=== PATIENT | female | born 1975 | race Caucasian/White ===

== ENCOUNTER → 2016-06-06 | Outpatient (CLI) | payer OTHER ==
[~2016-06-06] MED LIST: ANAPROX DS550 MG PO; ANTIVERT/2525 MG PO; CIPRO250 MG PO; CIPRO500 MG PO; CIPRODEX 0.3%-7.5 ML OT; FLAGYL500 MG PO; HYDROCODONE BIT1 T11 PO; K-Dur 20MEQ20 MEQ PO; LISINOPRIL20 MG PO; Lopressor25 MG PO; MEDROL DOSEPAK4 MG PO; METOPROLOL100 MG PO; NICOTINE14 MG/24 H TD; PROVERA10 MG PO; PROVERA5 MG PO; VICODIN ES 7501 TAB PO; VISTARIL25 MG PO
[2016-06-06 16:46] LABS: BASO % 0.6 % (0.0-1.0); EOS % 0.6 % (1.0-4.0); HEMATOCRIT 38.2 % (37.0-47.0); HEMOGLOBIN 12.3 g/dl (12.0-16.0); LYMPH # 2.9 10*3/uL (1.3-4.4); LYMPH % 39.6 % (27.0-41.0); MEAN CELL VOLUME 87.2 fl (81.0-99.0); MEAN CORPUSCULAR HGB 28.1 pg (27.0-31.0); MEAN CORPUSCULAR HGB CONC 32.2 g/dl (33.0-37.0); MONO # 0.5 10*3/uL (0.1-1.0); MONO % 7.3 % (3.0-9.0); NEUT # 3.8 10*3/uL (2.3-7.9); NEUT % 51.6 % (47.0-73.0); PLATELET COUNT AUTOMATED 207 10*3/uL (130-400); RED BLOOD COUNT 4.38 10*6/uL (4.10-5.10); RED CELL DISTRI WIDTH 13.3 % (0-14.5); WHITE BLOOD COUNT 7.3 10*3/uL (4.8-10.8)
[2016-06-06 16:50] LABS: BILIRUBIN NEGATIVE (NEGATIVE); BLOOD NEGATIVE (NEGATIVE); CLARITY SL CLOUDY (CLEAR); COLOR YELLOW (YELLOW); GLUCOSE NEGATIVE (NEGATIVE); KETONE NEGATIVE (NEGATIVE); LEUKO ESTERASE 2+ (NEGATIVE); NITRITE NEGATIVE (NEGATIVE); PH 7.5 (5.0-9.0); PROTEIN NEGATIVE (NEGATIVE); UROBILINOGEN 0.2 E.U./dl (0.2-1.0)
[2016-06-06 17:14] LABS: ALBUMIN 3.5 gm/dl (3.1-4.5); ALKALINE PHOSPHATASE 60 U/L (45-117); BILIRUBIN, TOTAL 0.5 mg/dl (0.2-1.0); BUN 7 mg/dl (7-24); CARBON DIOXIDE 29 mmol/L (21-32); CHLORIDE 106 mmol/L (98-107); EPITHELIAL CELLS 15-20; EST GLOM FILT AFRICAN AMERICAN > 60 ml/min; GLUCOSE 87 mg/dL (65-99); MUCOUS 1+; POTASSIUM 4.1 mmol/L (3.5-5.1); RBC 0-2 rbc/hpf (0-2); SGOT/AST 16 IU/L (3-35); SGPT/ALT 21 U/L (12-78); SODIUM 144 mmol/L (136-145); TOTAL PROTEIN 7.7 gm/dL (6.4-8.2)
== END | disposition home or self-care (01) ==
LOC: LAB 15:20
DX: Z01.812 Encounter for preprocedural laboratory examination (principal)

== ENCOUNTER 2017-04-10 20:13 | Emergency (ER) | payer OTHER ==
[~2017-04-10] VITALS: Ht 172.7 cm; Wt 90.7 kg
[2017-04-10 20:18] VITALS: BP 163/96
[2017-04-10 20:51] LABS: BASO % 0.3 % (0.0-1.0); EOS # 0.1 10*3/uL (0.0-0.4); EOS % 1.3 % (1.0-4.0); HEMATOCRIT 34.2 % (37.0-47.0); HEMOGLOBIN 11.4 g/dl (12.0-16.0); LYMPH # 3.1 10*3/uL (1.3-4.4); LYMPH % 51.1 % (27.0-41.0); MEAN CELL VOLUME 81.6 fl (81.0-99.0); MEAN CORPUSCULAR HGB 27.2 pg (27.0-31.0); MEAN CORPUSCULAR HGB CONC 33.3 g/dl (33.0-37.0); MEAN PLATELET VOLUME 10.2 fl (9.6-12.3); MONO # 0.4 10*3/uL (0.1-1.0); MONO % 6.4 % (3.0-9.0); NEUT # 2.5 10*3/uL (2.3-7.9); NEUT % 40.7 % (47.0-73.0); PLATELET COUNT AUTOMATED 191 10*3/uL (130-400); RED BLOOD COUNT 4.19 10*6/uL (4.10-5.10); RED CELL DISTRI WIDTH 13.6 % (0-14.5); WHITE BLOOD COUNT 6.1 10*3/uL (4.8-10.8)
[2017-04-10 21:06] LABS: ALBUMIN 3.4 gm/dl (3.1-4.5); ALKALINE PHOSPHATASE 54 U/L (45-117); BUN 9 mg/dl (7-24); CHLORIDE 103 mmol/L (98-107); CREATININE 0.73 mg/dL (0.55-1.02); LIPASE 154 U/L (73-393); POTASSIUM 3.2 mmol/L (3.5-5.1); SGOT/AST 22 IU/L (3-35); SGPT/ALT 23 U/L (12-78); SODIUM 140 mmol/L (136-145); TOTAL PROTEIN 7.2 gm/dL (6.4-8.2)
[2017-04-10] MEDS ORDERED: NAPROSYN500 MG PO (21:13)
[2017-04-10] MEDS ORDERED: CYCLOBENZAPRINE10 MG PO (21:13)
== END 2017-04-10 21:15 | disposition home or self-care (01) ==
LOC: ED 20:13
PROVIDERS: Nurse Practitioner Family
DX: S39.011A Strain of muscle, fascia and tendon of abdomen, initial encounter (principal); X50.3XXA Overexertion from repetitive movements, initial encounter; Y93.89 Activity, other specified; Y99.8 Other external cause status; Y92.89 Other specified places as the place of occurrence of the external cause

== ENCOUNTER 2019-05-07 13:52 | Inpatient (IN) | payer SELFPAY ==
[~2019-05-07] VITALS: Ht 165.1 cm; Wt 83.5 kg
[~2019-05-07 13:52] MED LIST changes: +CYCLOBENZAPRINE10 MG PO; +IBU800 MG PO; +NAPROSYN500 MG PO; +PREDNISONE50 MG PO
[2019-05-07 13:53] VITALS: BP 143/78
[2019-05-07] MEDS ORDERED: LISINOPRIL20 MG PO (14:14)
[2019-05-07 14:38] LABS: BASO % 0.2 % (0.0-1.0); EOS % 0.2 % (1.0-4.0); HEMATOCRIT 32.9 % (37.0-47.0); LYMPH # 1.2 10*3/uL (1.3-4.4); LYMPH % 11.8 % (27.0-41.0); MEAN CELL VOLUME 81.8 fl (81.0-99.0); MEAN CORPUSCULAR HGB 24.9 pg (27.0-31.0); MEAN CORPUSCULAR HGB CONC 30.4 g/dl (33.0-37.0); MEAN PLATELET VOLUME 11.5 fl (9.6-12.3); MONO # 0.7 10*3/uL (0.1-1.0); MONO % 6.6 % (3.0-9.0); NEUT # 8.2 10*3/uL (2.3-7.9); NEUT % 80.8 % (47.0-73.0); PLATELET COUNT AUTOMATED 167 10*3/uL (130-400); RED BLOOD COUNT 4.02 10*6/uL (4.10-5.10); RED CELL DISTRI WIDTH 14.6 % (0-14.5); WHITE BLOOD COUNT 10.2 10*3/uL (4.8-10.8)
[2019-05-07 14:52] LABS: BILIRUBIN NEGATIVE (NEGATIVE); BLOOD NEGATIVE (NEGATIVE); CLARITY SL CLOUDY (CLEAR); COLOR YELLOW (YELLOW); GLUCOSE NEGATIVE (NEGATIVE); KETONE NEGATIVE (NEGATIVE); LEUKO ESTERASE TRACE (NEGATIVE); NITRITE NEGATIVE (NEGATIVE); SPECIFIC GRAVITY 1.025 (1.005-1.030)
[2019-05-07 14:55] LABS: ALBUMIN 2.9 gm/dl (3.1-4.5); ALKALINE PHOSPHATASE 42 U/L (45-117); BUN 8 mg/dl (7-24); CHLORIDE 109 mmol/L (98-107); CREATININE 0.63 mg/dL (0.55-1.02); LIPASE 116 U/L (73-393); POTASSIUM 3.4 mmol/L (3.5-5.1); SGOT/AST 17 IU/L (3-35); SGPT/ALT 13 U/L (12-78); SODIUM 140 mmol/L (136-145); TOTAL PROTEIN 7.3 gm/dL (6.4-8.2)
[2019-05-07 15:13] LABS: BACTERIA TRACE; EPITHELIAL CELLS 16-20; MUCOUS 1+
--- NOTE | 2019-05-07 16:16 | NUR ---
THE PATIENT WAS TAKEN TO CT VIA WC
[2019-05-07 17:14] VITALS: BP 164/105
[2019-05-07 17:30] VITALS: BP 167/100
--- NOTE | 2019-05-07 17:41 | NUR ---
CCA 43, admitted to , under the services of BRIDGETT Vanegas DO with a diagnosis of DIVERTICULITIS. Chief complaint is ABD PAIN. Patient arrived via bed from ER. Monitor applied. Initial assessment completed. Vital signs taken and recorded. BRIDGETT VANEGAS DO notified of admission to the unit. Orders received. See assessment for past medical history, medications and allergies. Patient and/or family oriented to unit. [facility] visitation policy reviewed. Clothing/patient valuable form completed. FLETCHER BRUNO
--- NOTE | 2019-05-07 18:23 | NUR ---
PHYSICIAN WAS NOTIFIED OF DR. PERAZA CONSULT. RESPONSE OF NOTIFICATION WAS OK THEY CALLED ME FROM ER AND I WILL SEE HER TOMORROW. CLEAR LIQUID DIET.. KHRIS HERRERA
[2019-05-07 20:00] VITALS: BP 155/88
--- NOTE | 2019-05-07 21:15 | NUR ---
PATIENT IS RESTING IN BED WITH EASY AND REGULAR RESPERS ON ROOM AIR. ASSESSMENT IS COMPLETE WITH NO S/S OF DISTRESS NOTED AT THIS TIME. PATIENT C/O BODY ACHES AND TEMPERATURE RECHECKED WITH A RESULT OF 102 TYMPANIC. PRN TYLENOL GIVEN AT THIS TIME. BED IS LOW, LOCKED, AND CALL LIGHT IS WITHIN REACH.
--- NOTE | 2019-05-07 22:16 | NUR ---
TEMP GOING DOWN NOW 101.1 AFTER TYLENOL WILL CONTINUE TO MONITOR.
--- NOTE | 2019-05-07 22:35 | NUR ---
24 HR chart check completed.
--- NOTE | 2019-05-07 22:45 | NUR ---
PT ARRIVED TO THE 5TH FLOOR AT THIS TIME. RECEIVED REPORT FROM NURSE BRUNO. PT RELAXING IN BED. RESPIRATIONS EASY, NONLABORED. PT HAS NO COMPLAINTS AT THIS TIME. CALL LIGHT WITHIN REACH.
[2019-05-08] VITALS: BP 148/80
--- NOTE | 2019-05-08 02:05 | NUR ---
24 HR chart check completed.
--- NOTE | 2019-05-08 04:06 | NUR ---
PT CO LEG PAIN RATED A 6/10. MEDICATED WITH PRN NORCO ORDERED. WILL CHECK EFFECTIVENESS. CALL LIGHT WITHIN REACH.
--- NOTE | 2019-05-08 04:37 | NUR ---
PATIENT SLEEPING IN BED. RESPIRATIONS EASY, NONLABORED. NO SIGNS OF DISTRESS NOTED. CALL LIGHT WITHIN REACH. WILL CONTINUE TO MONITOR.
--- NOTE | 2019-05-08 04:41 | NUR ---
PATIENT SLEEPING. RESPIRATIONS EASY, NONLABORED. PAIN MEDICATIONS SEEMS TO BE EFFECTIVE. WILL MONITOR.
[2019-05-08 06:34] LABS: BASO % 0.2 % (0.0-1.0); EOS % 0.1 % (1.0-4.0); HEMATOCRIT 28.2 % (37.0-47.0); HEMOGLOBIN 8.6 g/dl (12.0-16.0); LYMPH % 12.2 % (27.0-41.0); MEAN CELL VOLUME 80.6 fl (81.0-99.0); MEAN CORPUSCULAR HGB 24.6 pg (27.0-31.0); MEAN CORPUSCULAR HGB CONC 30.5 g/dl (33.0-37.0); MEAN PLATELET VOLUME 11.3 fl (9.6-12.3); MONO # 0.8 10*3/uL (0.1-1.0); MONO % 8.9 % (3.0-9.0); NEUT # 6.7 10*3/uL (2.3-7.9); NEUT % 78.1 % (47.0-73.0); PLATELET COUNT AUTOMATED 142 10*3/uL (130-400); RED CELL DISTRI WIDTH 14.7 % (0-14.5); WHITE BLOOD COUNT 8.5 10*3/uL (4.8-10.8)
[2019-05-08 06:39] LABS: ALBUMIN 2.5 gm/dl (3.1-4.5); BUN 7 mg/dl (7-24); CHLORIDE 109 mmol/L (98-107); POTASSIUM 3.1 mmol/L (3.5-5.1); SODIUM 139 mmol/L (136-145)
[2019-05-08 06:51] LABS: ALKALINE PHOSPHATASE 37 U/L (45-117); CHOLESTEROL 114 mg/dL (<200); CREATININE 0.53 mg/dL (0.55-1.02); HDL CHOLESTEROL 37 mg/dl (40-60); LDL CHOLESTEROL 62 mg/dL (9-159); PHOSPHOROUS 3.2 mg/dL (2.5-4.9); SGOT/AST 10 IU/L (3-35); SGPT/ALT 13 U/L (12-78); THYROID STIM HORMONE (HS) 0.818 uIU/ml (0.358-4.75); TOTAL PROTEIN 6.2 gm/dL (6.4-8.2); TRIGLYCERIDES 77 mg/dl (<150); VLDL CHOLESTEROL 15 mg/dL (6-40)
[2019-05-08 07:47] LABS: ACT PARTIAL THROMBO TIME 28.5 SECONDS (20.0-32.1)
[2019-05-08 08:00] VITALS: BP 134/81
[2019-05-08 08:00] LABS: VITAMIN D, 25-HYDROXY 27.8 ng/mL (30-100)
--- NOTE | 2019-05-08 08:55 | NUR ---
MEDICATED WITH PRN PO NORCO FOR LOWER ABDOMINAL PAIN.
--- NOTE | 2019-05-08 09:01 | NUR ---
DR. PERAZA IN TO SEE PATIENT RE: PLAN OF CARE, WILL BE ENTERING ORDER FOR LOW RESIDUE DIET, PLAN IS TO CONTINUE ANTIBIOTICS FOR NOW AND MONITOR RESPONSE TO TREATMENT.
--- NOTE | 2019-05-08 09:36 | NUR ---
PRN PO NORCO EFFECTIVE, PER PATIENT.
[2019-05-08 12:00] VITALS: BP 142/86
--- NOTE | 2019-05-08 15:50 | NUR ---
MEDICATED WITH PRN PO NORCO FOR ABDOMINAL AND BACK PAIN.
[2019-05-08 16:00] VITALS: BP 143/69
--- NOTE | 2019-05-08 16:31 | NUR ---
PRN PO NORCO EFFECTIVE, PER PATIENT.
[2019-05-08 20:00] VITALS: BP 139/77
--- NOTE | 2019-05-08 23:18 | NUR ---
PT COMPLIANING OF LOWER ABD PAIN 02/08 NORCO GIVEN
[2019-05-09] VITALS: BP 131/67
--- NOTE | 2019-05-09 00:19 | NUR ---
PT RESTING COMFORTABLY NO COMPLAINTS OF LOWER ABD PAIN
--- NOTE | 2019-05-09 02:57 | NUR ---
24 HOUR CHART CHECK COMPLETED
--- NOTE | 2019-05-09 05:58 | NUR ---
PT COMPLAINS LOWER ABD PAIN 9/10 NORCO GIVEN
--- NOTE | 2019-05-09 07:33 | NUR ---
VITALS STABLE. SKIN WARM, DRY, PINK, INTACT. CAPILLARY REFILL <3 SEC. + PERIPHERAL PULSES. LEE. PO2 96% RA. HEART SOUNDS NORMAL, 82BPM STRONG, IRREGULAR. LUNG SOUNDS DIMINISHED BUT CLEAR THROUGHOUT. BOWEL SOUNDS X4, ABDOMEN SOFT, NON-DISTENDED, TENDER IN LLQ. LEFT ANTECUBITAL IV SITE INTACT, NO S/S OF INFECTION. NO COMPLAINTS OF PAIN AT THIS TIME, WILL CONTINUE TO MONITOR. ION ANTHONYCC
--- NOTE | 2019-05-09 07:46 | NUR ---
REPORT RECIEVED AND PT CARE HANDED OVER TO ZOILA, TRANSPORT ASSISTANT AND HER STUDENT FROM [facility].
[2019-05-09 08:00] VITALS: BP 148/82
--- NOTE | 2019-05-09 08:00 | NUR ---
NOTIFIED DR CHIU OF PT POTASSIUM HAD NOT BEEN SUPPLEMENTED WHERE I COULD FIND DURING CHART CHECK. PT K 3.4 ON 05/07. POTASSIUM 3.1 YESTERDAY. NO REPEAT CHEMISTRY TODAY.
--- NOTE | 2019-05-09 09:16 | NUR ---
PT FAMILY IN TO VISIT. SITTING UP IN BED EATING BREAKFAST. WILL CONTINUE TO MONITOR. ION PAEZ CRISTAL
[2019-05-09 10:09] LABS: BUN 4 mg/dl (7-24); CHLORIDE 105 mmol/L (98-107); POTASSIUM 3.3 mmol/L (3.5-5.1); SODIUM 136 mmol/L (136-145)
--- NOTE | 2019-05-09 10:23 | NUR ---
PT COMPLAINS "MY LOWER BELLY HURTS, ABOUT A 09/08." NORCO 1 TAB PO GIVEN. WILL CONTINUE TO MONITOR. RAJ MICHAELCC
--- NOTE | 2019-05-09 10:56 | NUR ---
PAIN REASSESSED. PT STATES "IT'S A LITTLE BETTER, BUT STILL A 3/10." WILL CONTINUE TO MONITOR. RAJ MICHAELCC
--- NOTE | 2019-05-09 11:41 | NUR ---
WAS IN TO SEE PT. RESTING COMFORTABLY IN BED WATCHING TV. WILL CONTINUE TO MONITOR. ION PAEZ SPCC
--- NOTE | 2019-05-09 11:59 | NUR ---
GIVEN TYLENOL 650 MG PO FOR TEMPERATURE OF 99.4. WILL CONTINUE TO ASSESS. ION BERNAL
[2019-05-09 12:01] VITALS: BP 125/64; BP 136/78
--- NOTE | 2019-05-09 15:29 | NUR ---
TYLENOL 650 MG GIVEN FOR TEMP OF 100.1.WILL CONTINUE TO MONITOR. VOICES NO OTHER NEEDS AT THIS TIME. CALLL LIGHT IN REACH.
--- NOTE | 2019-05-09 15:37 | NUR ---
[employer] in to talk to patient. Patient states lives at HOME with . There are OUTSIDE steps in the home. Physician: JUNE Pharmacy: [facility] Home health services: NONE Patient's level of ADLs: INDEPENDENT Patient has working utilities: YES DME: NONE Follow-up physician's appointment after d/c: WILL BE MADE BY HOSPITALIST NURSE DIRECTOR ON DISCHARGE Does patient want to access PORTAL?: NO Discharge plan PT LIVES AT HOME WITH HER AND IS INDEPENDENT IN HER CARE. DENIES SHE WILL HAVE ANY NEEDS ON DISCHARGE. WILL RETURN HOME WITH . STATES HE WILL TRANSPORT HOME. WILL CONTINUE TO FOLLOW.. SANAZ HUERTA
[2019-05-09 16:00] VITALS: BP 131/81
--- NOTE | 2019-05-09 18:25 | NUR ---
NORCO 5/325 MG GIVEN FOR C/O PAIN,10/08.
--- NOTE | 2019-05-09 19:49 | NUR ---
spoke with unique said pt having low grade fever chills sweats said okay to swab for the flu
[2019-05-09 20:00] VITALS: BP 115/65
--- NOTE | 2019-05-09 21:19 | NUR ---
PT STATES KAT HAD BM IN 2 DAYS I SAID I COUL DGIVE HER A STOOL SOFTENER BUT SHE REQUESTED TO HAVE APPLE AND GRAPE JUICE
--- NOTE | 2019-05-09 23:24 | NUR ---
TEMP 99.1 NORCO PRN GIVEN PT HAVING SOME ABD PAIN 10/08
[2019-05-10] VITALS: BP 147/88
--- NOTE | 2019-05-10 03:22 | NUR ---
24 HR chart check completed.
[2019-05-10 06:13] LABS: BASO % 0.1 % (0.0-1.0); HEMATOCRIT 28.7 % (37.0-47.0); LYMPH # 1.4 10*3/uL (1.3-4.4); LYMPH % 13.5 % (27.0-41.0); MEAN CELL VOLUME 80.4 fl (81.0-99.0); MEAN CORPUSCULAR HGB 25.2 pg (27.0-31.0); MEAN CORPUSCULAR HGB CONC 31.4 g/dl (33.0-37.0); MEAN PLATELET VOLUME 10.7 fl (9.6-12.3); MONO # 0.6 10*3/uL (0.1-1.0); MONO % 6.2 % (3.0-9.0); NEUT # 8.1 10*3/uL (2.3-7.9); NEUT % 79.6 % (47.0-73.0); PLATELET COUNT AUTOMATED 173 10*3/uL (130-400); RED BLOOD COUNT 3.57 10*6/uL (4.10-5.10); RED CELL DISTRI WIDTH 14.2 % (0-14.5); WHITE BLOOD COUNT 10.2 10*3/uL (4.8-10.8)
[2019-05-10 06:30] LABS: ALBUMIN 2.4 gm/dl (3.1-4.5); ALKALINE PHOSPHATASE 55 U/L (45-117); BUN 2 mg/dl (7-24); CHLORIDE 106 mmol/L (98-107); CREATININE 0.52 mg/dL (0.55-1.02); POTASSIUM 3.3 mmol/L (3.5-5.1); SGOT/AST 12 IU/L (3-35); SGPT/ALT 17 U/L (12-78); SODIUM 138 mmol/L (136-145); TOTAL PROTEIN 6.6 gm/dL (6.4-8.2)
[2019-05-10 08:00] VITALS: BP 148/78
--- NOTE | 2019-05-10 10:11 | NUR ---
NORCO 5/325 MG GIVEN FOR C/O GENERALIZED PAIN,11/08.
[2019-05-10 12:00] VITALS: BP 151/95
[2019-05-10 16:00] VITALS: BP 121/75
--- NOTE | 2019-05-10 19:35 | NUR ---
Patient resting quietly with no c/o discomfort. Respirations easy and regular. Vital signs stable. No overt distress. PO[place]O OAKES
[2019-05-10 20:00] VITALS: BP 128/76
[2019-05-11] VITALS: BP 121/75
[2019-05-11 06:10] LABS: BASO % 0.2 % (0.0-1.0); EOS % 0.1 % (1.0-4.0); HEMATOCRIT 27.5 % (37.0-47.0); HEMOGLOBIN 8.4 g/dl (12.0-16.0); LYMPH # 1.3 10*3/uL (1.3-4.4); LYMPH % 12.9 % (27.0-41.0); MEAN CELL VOLUME 79.9 fl (81.0-99.0); MEAN CORPUSCULAR HGB 24.4 pg (27.0-31.0); MEAN CORPUSCULAR HGB CONC 30.5 g/dl (33.0-37.0); MEAN PLATELET VOLUME 10.6 fl (9.6-12.3); MONO # 0.6 10*3/uL (0.1-1.0); MONO % 6.1 % (3.0-9.0); NEUT # 8.2 10*3/uL (2.3-7.9); NEUT % 80.1 % (47.0-73.0); PLATELET COUNT AUTOMATED 165 10*3/uL (130-400); RED BLOOD COUNT 3.44 10*6/uL (4.10-5.10); RED CELL DISTRI WIDTH 14.4 % (0-14.5); WHITE BLOOD COUNT 10.2 10*3/uL (4.8-10.8)
[2019-05-11 06:18] LABS: BUN 3 mg/dl (7-24); CHLORIDE 109 mmol/L (98-107); POTASSIUM 3.4 mmol/L (3.5-5.1); SODIUM 141 mmol/L (136-145)
--- NOTE | 2019-05-11 06:42 | NUR ---
24 HR CHART CHECK AND COMPLETED
[2019-05-11 08:00] VITALS: BP 127/74
[2019-05-11 11:48] VITALS: BP 140/73
--- NOTE | 2019-05-11 12:53 | NUR ---
PT STATES SHE STILL PLANS TO RETURN HOME ON DISCHARGE WITH NO NEEDS. WILL CONTINUE TO FOLLOW.
--- NOTE | 2019-05-11 13:57 | NUR ---
pt medicated with prn norco for c/o abdominal discomfort. pt rates 11/08. will monitor.
[2019-05-11 16:00] VITALS: BP 135/62
[2019-05-11 20:00] VITALS: BP 127/73
--- NOTE | 2019-05-11 23:11 | NUR ---
PRN NORCO GIVEN FOR PT COMPLAINTS OF BACK AND ABDOMINAL PAIN RATING IT 6/10. CALL LIGHT WITHIN REACH, WILL MONITOR
[2019-05-12] VITALS (11 sets, daily range): BP systolic 124–192; BP diastolic 68–102
[2019-05-12 08:26] LABS: BUN 4 mg/dl (7-24); CHLORIDE 109 mmol/L (98-107); CREATININE 0.51 mg/dL (0.55-1.02); POTASSIUM 3.6 mmol/L (3.5-5.1); SODIUM 141 mmol/L (136-145)
--- NOTE | 2019-05-12 14:43 | NUR ---
PT GOING TO SURGERY TODAY FOR DRAINAGE OF COLONIC ABSCESS. WILL CONTINUE TO FOLLOW.
--- NOTE | 2019-05-12 23:17 | NUR ---
PRN NORCO GIVEN FOR PT COMPLAINTS OF ABDOMINAL DISCOMFORT. PATIENT DID SAY THAT SHE IS BELCHING THOUGH. CALL LIGHT WITHIN REACH, WILL MONITOR
[2019-05-13] VITALS: BP 155/79
--- NOTE | 2019-05-13 01:32 | NUR ---
PATIENT SLEEPING. PRN PAIN MEDICATION APPEARS EFFECTIVE.
--- NOTE | 2019-05-13 05:16 | NUR ---
PRN NORCO GIVEN FOR PT COMPLAINTS OF PAIN IN THE ABDOMEN RATING IT 8/10. CALL LIGHT WITHIN REACH, WILL MONITOR
[2019-05-13 06:34] LABS: HEMATOCRIT 29.7 % (37.0-47.0); HEMOGLOBIN 9.3 g/dl (12.0-16.0); MEAN CELL VOLUME 80.3 fl (81.0-99.0); MEAN CORPUSCULAR HGB 25.1 pg (27.0-31.0); MEAN CORPUSCULAR HGB CONC 31.3 g/dl (33.0-37.0); MEAN PLATELET VOLUME 10.5 fl (9.6-12.3); PLATELET COUNT AUTOMATED 297 10*3/uL (130-400); RED CELL DISTRI WIDTH 14.3 % (0-14.5); WHITE BLOOD COUNT 16.3 10*3/uL (4.8-10.8)
[2019-05-13 06:59] LABS: BUN 5 mg/dl (7-24); CHLORIDE 108 mmol/L (98-107); CREATININE 0.61 mg/dL (0.55-1.02); POTASSIUM 3.5 mmol/L (3.5-5.1); SODIUM 139 mmol/L (136-145)
[2019-05-13 07:22] LABS: ATYPICAL LYMPHS 1 % (0-0); PLATELET SUFFICIENCY NORMAL (NORMAL); TOTAL CELLS COUNTED 100 #CELLS
[2019-05-13 07:23] LABS: MICROCYTOSIS SLIGHT; OVALOCYTES FEW; ROULEAUX SLIGHT; TARGET CELLS FEW
[2019-05-13 08:00] VITALS: BP 132/81
--- NOTE | 2019-05-13 08:32 | NUR ---
Dr. Amor requested that pt be given dulcolax this am. Given per order.
--- NOTE | 2019-05-13 10:15 | NUR ---
Medicated with norco per prn order for c/o abdominal pain. Rates pain 4/10.
[2019-05-13 12:00] VITALS: BP 140/79
--- NOTE | 2019-05-13 13:30 | NUR ---
PT WILL BE DISCHARGED TO HOME WHEN MEDICALLY STABLE. DENIES SHE WILL HAVE NEEDS AT THIS TIME.
--- NOTE | 2019-05-13 14:17 | NUR ---
Spoke with Dr. Melchor regarding consult dc orders from Dr. Robbins. Notified Ok to order DC for pt and that Dr. Robbins wanted two antibiotics ordered. Reviewed with Dr. Melchor med orders that needed ordered per Dr. Robbins.
[2019-05-13] MEDS ORDERED: CIPRO500 MG PO (14:38)
[2019-05-13] MEDS ORDERED: HYDROCODONE-AC1 EAC1 PO (14:38)
[2019-05-13] MEDS ORDERED: FLAGYL500 MG PO (14:38)
--- NOTE | 2019-05-13 15:10 | NUR ---
Discharge instructions reviewed with patient. Patient receptive and verbalizes understanding. Follow-up care arranged. Written instructions given to patient. Iv removed. Pt is waiting on to come pick her up. 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
[2019-05-13 16:00] VITALS: BP 150/82
--- NOTE | 2019-05-13 16:02 | NUR ---
Discharged in care of .
== END 2019-05-13 16:02 | disposition home or self-care (01) | DRG 344 ==
LOC: ED 13:52 → EDHOLD 17:12 → 5E 17:12 → 4E 17:19 → 5E 22:05
PROVIDERS: Family Medicine; Hospitalist; Internal Medicine; Physician Assistant; ADMIT Family Medicine
PROC: 0D9N4ZZ Drainage of Sigmoid Colon, Percutaneous Endoscopic Approach (ICD-10-PCS; principal; 2019-05-12)
DX: K57.20 Diverticulitis of large intestine with perforation and abscess without bleeding (principal); E43 Unspecified severe protein-calorie malnutrition; E87.6 Hypokalemia; D64.89 Other specified anemias; E87.8 Other disorders of electrolyte and fluid balance, not elsewhere classified; I10 Essential (primary) hypertension; F41.9 Anxiety disorder, unspecified; R00.0 Tachycardia, unspecified; E55.9 Vitamin D deficiency, unspecified; E66.9 Obesity, unspecified; Z68.30 Body mass index [BMI] 30.0-30.9, adult; Z98.51 Tubal ligation status; Z85.41 Personal history of malignant neoplasm of cervix uteri

== ENCOUNTER 2019-06-01 00:36 | Emergency (ER) | payer SELFPAY ==
[~2019-06-01] VITALS: Ht 165.1 cm; Wt 83.5 kg
[~2019-06-01 00:36] MED LIST changes: +HYDROCODONE-AC1 EAC1 PO
[2019-06-01] MEDS ORDERED: CEFADROXIL500 M1 PO (00:47)
[2019-06-01 01:09] LABS: BASO % 0.3 % (0.0-1.0); EOS % 0.1 % (1.0-4.0); HEMATOCRIT 30.6 % (37.0-47.0); HEMOGLOBIN 9.3 g/dl (12.0-16.0); LYMPH # 1.7 10*3/uL (1.3-4.4); LYMPH % 13.2 % (27.0-41.0); MEAN CELL VOLUME 78.7 fl (81.0-99.0); MEAN CORPUSCULAR HGB 23.9 pg (27.0-31.0); MEAN CORPUSCULAR HGB CONC 30.4 g/dl (33.0-37.0); MEAN PLATELET VOLUME 9.8 fl (9.6-12.3); MONO # 0.9 10*3/uL (0.1-1.0); MONO % 7.2 % (3.0-9.0); NEUT # 9.9 10*3/uL (2.3-7.9); NEUT % 78.7 % (47.0-73.0); PLATELET COUNT AUTOMATED 289 10*3/uL (130-400); RED BLOOD COUNT 3.89 10*6/uL (4.10-5.10); RED CELL DISTRI WIDTH 14.6 % (0-14.5); WHITE BLOOD COUNT 12.6 10*3/uL (4.8-10.8)
[2019-06-01 01:20] LABS: BUN 6 mg/dl (7-24); CHLORIDE 108 mmol/L (98-107); CREATININE 0.59 mg/dL (0.55-1.02); POTASSIUM 3.4 mmol/L (3.5-5.1); SODIUM 141 mmol/L (136-145)
[2019-06-01 01:33] LABS: ACETAMINOPHEN (TYLENOL) < 5.0 ug/ml (10-30)
[2019-06-01 02:12] LABS: BILIRUBIN NEGATIVE (NEGATIVE); BLOOD NEGATIVE (NEGATIVE); CLARITY CLEAR (CLEAR); COLOR YELLOW (YELLOW); GLUCOSE NEGATIVE (NEGATIVE); KETONE NEGATIVE (NEGATIVE); LEUKO ESTERASE NEGATIVE (NEGATIVE); NITRITE NEGATIVE (NEGATIVE); SPECIFIC GRAVITY <= 1.005 (1.005-1.030); UROBILINOGEN 0.2 E.U./dl (0.2-1.0)
[2019-06-01 02:20] LABS: URINE AMPHETAMINES < 1000 (1000ng/ml); URINE BARBITURATES < 200 (200ng/ml); URINE BENZODIAZEPINES < 200 (200ng/ml); URINE CANNABINOIDS (THC) < 50 (50ng/ml); URINE COCAINE < 300 (300ng/ml); URINE METHADONE < 300 (300ng/ml); URINE OPIATES < 300 (300ng/ml)
[2019-06-01 02:21] LABS: URINE PHENCYCLIDINE < 25 (25ng/ml)
[2019-06-01 02:23] LABS: EPITHELIAL CELLS 20-25
[2019-06-01 07:53] VITALS: BP 121/82
== END 2019-06-01 11:24 | disposition home or self-care (01) ==
LOC: ED 00:36
PROVIDERS: Physician Assistant
DX: S51.812A Laceration without foreign body of left forearm, initial encounter (principal); F32.9 Major depressive disorder, single episode, unspecified; F41.9 Anxiety disorder, unspecified; I10 Essential (primary) hypertension; Z79.2 Long term (current) use of antibiotics; Z79.899 Other long term (current) drug therapy; X78.1XXA Intentional self-harm by knife, initial encounter; Y04.8XXA Assault by other bodily force, initial encounter; Y93.89 Activity, other specified; Y92.098 Other place in other non-institutional residence as the place of occurrence of the external cause; Y99.8 Other external cause status

== ENCOUNTER 2019-09-08 20:57 | Emergency (ER) | payer OTHER, MEDICAID ==
[~2019-09-08] VITALS: Ht 165.1 cm; Wt 78.5 kg
[~2019-09-08 20:57] MED LIST changes: +CEFADROXIL500 M1 PO
[2019-09-08 21:08] VITALS: BP 154/93
[2019-09-08 21:58] LABS: BASO % 0.2 % (0.0-1.0); EOS % 0.1 % (1.0-4.0); HEMATOCRIT 33.5 % (37.0-47.0); HEMOGLOBIN 10.3 g/dl (12.0-16.0); LYMPH # 2.9 10*3/uL (1.3-4.4); LYMPH % 19.7 % (27.0-41.0); MEAN CELL VOLUME 77.5 fl (81.0-99.0); MEAN CORPUSCULAR HGB 23.8 pg (27.0-31.0); MEAN CORPUSCULAR HGB CONC 30.7 g/dl (33.0-37.0); MEAN PLATELET VOLUME 9.4 fl (9.6-12.3); MONO # 0.8 10*3/uL (0.1-1.0); MONO % 5.7 % (3.0-9.0); NEUT # 10.8 10*3/uL (2.3-7.9); NEUT % 73.8 % (47.0-73.0); PLATELET COUNT AUTOMATED 270 10*3/uL (130-400); RED BLOOD COUNT 4.32 10*6/uL (4.10-5.10); WHITE BLOOD COUNT 14.7 10*3/uL (4.8-10.8)
[2019-09-08 22:08] LABS: BACTERIA 1+; BILIRUBIN NEGATIVE (NEGATIVE); BLOOD NEGATIVE (NEGATIVE); CLARITY SL CLOUDY (CLEAR); COLOR YELLOW (YELLOW); EPITHELIAL CELLS TNTC; GLUCOSE NEGATIVE (NEGATIVE); KETONE NEGATIVE (NEGATIVE); LEUKO ESTERASE NEGATIVE (NEGATIVE); MUCOUS TRACE; NITRITE NEGATIVE (NEGATIVE); RBC 0-2 rbc/hpf (0-2); SPECIFIC GRAVITY 1.015 (1.005-1.030); UROBILINOGEN 0.2 E.U./dl (0.2-1.0)
[2019-09-08 22:13] LABS: ALBUMIN 3.1 gm/dl (3.1-4.5); ALKALINE PHOSPHATASE 59 U/L (45-117); BUN 19 mg/dl (7-24); CHLORIDE 105 mmol/L (98-107); CREATININE 0.63 mg/dL (0.55-1.02); POTASSIUM 3.6 mmol/L (3.5-5.1); SGOT/AST 12 IU/L (3-35); SGPT/ALT 15 U/L (12-78); SODIUM 136 mmol/L (136-145); TOTAL PROTEIN 7.6 gm/dL (6.4-8.2)
[2019-09-08] MEDS ORDERED: PERCOCET 5-3251 EACH PO (23:25)
== END 2019-09-08 23:33 | disposition home or self-care (01) ==
LOC: ED 20:57
PROVIDERS: Emergency Medicine
DX: N20.0 Calculus of kidney (principal); I10 Essential (primary) hypertension; Z87.891 Personal history of nicotine dependence; Z79.2 Long term (current) use of antibiotics; Z79.899 Other long term (current) drug therapy; Z98.890 Other specified postprocedural states

== ENCOUNTER 2020-03-30 21:37 | Inpatient (IN) | payer OTHER ==
[~2020-03-30] VITALS: Ht 165.1 cm; Wt 93.0 kg
[~2020-03-30 21:37] MED LIST changes: +PERCOCET 5-3251 EACH PO
[2020-03-30 21:43] VITALS: BP 157/89
[2020-03-30 22:01] LABS: BILIRUBIN Negative (Negative); BLOOD Negative (Negative); CLARITY Clear (Clear); COLOR Yellow (Yellow); GLUCOSE Negative (Negative); KETONE Negative (Negative); LEUKO ESTERASE Negative (Negative); NITRITE Negative (Negative); UROBILINOGEN 0.2 E.U./dl (0.0-1.0)
[2020-03-30 22:05] LABS: BASO % 0.3 % (0.0-1.0); EOS % 0.5 % (1.0-4.0); HEMATOCRIT 34.8 % (37.0-47.0); LYMPH # 2.5 10*3/uL (1.3-4.4); LYMPH % 31.5 % (27.0-41.0); MEAN CELL VOLUME 79.8 fl (81.0-99.0); MEAN CORPUSCULAR HGB 24.5 pg (27.0-31.0); MEAN CORPUSCULAR HGB CONC 30.7 g/dl (33.0-37.0); MEAN PLATELET VOLUME 9.7 fl (9.6-12.3); MONO # 0.7 10*3/uL (0.1-1.0); MONO % 8.7 % (3.0-9.0); NEUT # 4.6 10*3/uL (2.3-7.9); NEUT % 58.5 % (47.0-73.0); PLATELET COUNT AUTOMATED 234 10*3/uL (130-400); RED BLOOD COUNT 4.36 10*6/uL (4.10-5.10); RED CELL DISTRI WIDTH 15.2 % (0-14.5); WHITE BLOOD COUNT 7.9 10*3/uL (4.8-10.8)
[2020-03-30 22:11] LABS: WBC 0-2 wbc/hpf (0-5)
[2020-03-30 22:21] LABS: ALBUMIN 3.3 gm/dl (3.1-4.5); ALKALINE PHOSPHATASE 50 U/L (45-117); BUN 8 mg/dl (7-24); CHLORIDE 108 mmol/L (98-107); CREATININE 0.61 mg/dL (0.55-1.02); LIPASE 109 U/L (73-393); POTASSIUM 3.7 mmol/L (3.5-5.1); SGOT/AST 11 IU/L (3-35); SGPT/ALT 15 U/L (12-78); SODIUM 138 mmol/L (136-145); TOTAL PROTEIN 7.8 gm/dL (6.4-8.2)
[2020-03-31 00:57] VITALS: BP 169/94
[2020-03-31 01:40] VITALS: BP 142/84
[2020-03-31 06:35] LABS: BASO % 0.3 % (0.0-1.0); EOS # 0.1 10*3/uL (0.0-0.4); EOS % 0.8 % (1.0-4.0); HEMATOCRIT 31.2 % (37.0-47.0); LYMPH % 32.7 % (27.0-41.0); MEAN CELL VOLUME 80.6 fl (81.0-99.0); MEAN CORPUSCULAR HGB 24.8 pg (27.0-31.0); MEAN CORPUSCULAR HGB CONC 30.8 g/dl (33.0-37.0); MEAN PLATELET VOLUME 9.6 fl (9.6-12.3); MONO # 0.5 10*3/uL (0.1-1.0); MONO % 8.5 % (3.0-9.0); NEUT # 3.6 10*3/uL (2.3-7.9); NEUT % 57.4 % (47.0-73.0); PLATELET COUNT AUTOMATED 193 10*3/uL (130-400); RED BLOOD COUNT 3.87 10*6/uL (4.10-5.10); RED CELL DISTRI WIDTH 15.3 % (0-14.5); WHITE BLOOD COUNT 6.2 10*3/uL (4.8-10.8)
[2020-03-31 06:57] LABS: BUN 6 mg/dl (7-24); CHLORIDE 109 mmol/L (98-107); CREATININE 0.58 mg/dL (0.55-1.02); POTASSIUM 3.8 mmol/L (3.5-5.1); SODIUM 142 mmol/L (136-145)
[2020-03-31 08:00] VITALS: BP 120/74
[2020-03-31 16:00] VITALS: BP 122/72
[2020-04-01] VITALS: BP 136/73
[2020-04-01 08:00] VITALS: BP 136/81
[2020-04-01 16:04] VITALS: BP 144/83
[2020-04-02] VITALS: BP 131/61
[2020-04-02 06:22] LABS: BASO % 0.4 % (0.0-1.0); EOS # 0.1 10*3/uL (0.0-0.4); EOS % 1.3 % (1.0-4.0); HEMATOCRIT 32.6 % (37.0-47.0); LYMPH # 1.8 10*3/uL (1.3-4.4); LYMPH % 37.1 % (27.0-41.0); MEAN CELL VOLUME 80.9 fl (81.0-99.0); MEAN CORPUSCULAR HGB 24.8 pg (27.0-31.0); MEAN CORPUSCULAR HGB CONC 30.7 g/dl (33.0-37.0); MEAN PLATELET VOLUME 9.9 fl (9.6-12.3); MONO # 0.5 10*3/uL (0.1-1.0); MONO % 9.5 % (3.0-9.0); NEUT # 2.4 10*3/uL (2.3-7.9); NEUT % 51.3 % (47.0-73.0); PLATELET COUNT AUTOMATED 202 10*3/uL (130-400); RED BLOOD COUNT 4.03 10*6/uL (4.10-5.10); RED CELL DISTRI WIDTH 15.1 % (0-14.5); WHITE BLOOD COUNT 4.7 10*3/uL (4.8-10.8)
[2020-04-02 08:00] VITALS: BP 129/67
[2020-04-02 16:00] VITALS: BP 136/67
[2020-04-03] VITALS: BP 124/70
[2020-04-03 08:00] VITALS: BP 135/73
[2020-04-03 12:00] VITALS: BP 153/104
[2020-04-03] MEDS ORDERED: FLAGYL500 MG PO (14:31)
[2020-04-03] MEDS ORDERED: LEVOFLOXACIN750 M2 PO (14:31)
== END 2020-04-03 16:16 | disposition home or self-care (01) | DRG 392 ==
LOC: ED 21:37 → 5E 03-31 00:47 → EDHOLD 03-31 00:47 → 5E 03-31 01:23
PROVIDERS: Internal Medicine; Nurse Practitioner Family; Surgery; ADMIT Emergency Medicine; ATTEND Emergency Medicine
DX: K57.20 Diverticulitis of large intestine with perforation and abscess without bleeding (principal); D50.9 Iron deficiency anemia, unspecified; E87.8 Other disorders of electrolyte and fluid balance, not elsewhere classified; I10 Essential (primary) hypertension; Z98.51 Tubal ligation status

== ENCOUNTER 2020-04-23 23:42 | Emergency (ER) | payer OTHER ==
[~2020-04-23] VITALS: Ht 165.1 cm; Wt 86.6 kg
[~2020-04-23 23:42] MED LIST changes: +LEVOFLOXACIN750 M2 PO
[2020-04-24 00:32] LABS: BASO % 0.2 % (0.0-1.0); EOS % 0.1 % (1.0-4.0); HEMATOCRIT 35.7 % (37.0-47.0); LYMPH # 2.2 10*3/uL (1.3-4.4); LYMPH % 19.5 % (27.0-41.0); MEAN CORPUSCULAR HGB 24.7 pg (27.0-31.0); MEAN CORPUSCULAR HGB CONC 30.5 g/dl (33.0-37.0); MEAN PLATELET VOLUME 9.8 fl (9.6-12.3); MONO # 0.9 10*3/uL (0.1-1.0); MONO % 7.6 % (3.0-9.0); NEUT # 8.3 10*3/uL (2.3-7.9); NEUT % 72.2 % (47.0-73.0); PLATELET COUNT AUTOMATED 249 10*3/uL (130-400); RED BLOOD COUNT 4.41 10*6/uL (4.10-5.10); WHITE BLOOD COUNT 11.5 10*3/uL (4.8-10.8)
[2020-04-24 00:47] LABS: BILIRUBIN Negative (Negative); BLOOD Negative (Negative); CLARITY Clear (Clear); COLOR Yellow (Yellow); GLUCOSE Negative (Negative); KETONE Negative (Negative); LEUKO ESTERASE Negative (Negative); NITRITE Negative (Negative); UROBILINOGEN 0.2 E.U./dl (0.0-1.0)
[2020-04-24 00:48] LABS: ALBUMIN 3.4 gm/dl (3.1-4.5); ALKALINE PHOSPHATASE 52 U/L (45-117); BUN 15 mg/dl (7-24); CHLORIDE 105 mmol/L (98-107); CREATININE 0.76 mg/dL (0.55-1.02); LIPASE 208 U/L (73-393); POTASSIUM 4.1 mmol/L (3.5-5.1); SGOT/AST 13 IU/L (3-35); SGPT/ALT 13 U/L (12-78); SODIUM 136 mmol/L (136-145); TOTAL PROTEIN 8.1 gm/dL (6.4-8.2)
[2020-04-24 01:01] LABS: EPITHELIAL CELLS 16-20; RBC 0-2 rbc/hpf (0-2); WBC 0-2 wbc/hpf (0-5)
[2020-04-24] MEDS ORDERED: FLAGYL500 MG PO (03:21)
[2020-04-24] MEDS ORDERED: CIPRO500 MG PO (03:21)
[2020-04-24 03:38] VITALS: BP 123/76
== END 2020-04-24 03:48 | disposition home or self-care (01) ==
LOC: ED 23:42
PROVIDERS: Physician Assistant
DX: K52.9 Noninfective gastroenteritis and colitis, unspecified (principal); Z98.51 Tubal ligation status; Z79.899 Other long term (current) drug therapy

== ENCOUNTER 2022-04-28 15:48 | Emergency (ER) | payer OTHER ==
[~2022-04-28] VITALS: Ht 165.1 cm; Wt 99.8 kg
[2022-04-28 18:06] LABS: BILIRUBIN Negative (Negative); BLOOD Negative (Negative); CLARITY Clear (Clear); COLOR Yellow (Yellow); GLUCOSE Negative (Negative); KETONE Trace (Negative); LEUKO ESTERASE Negative (Negative); NITRITE Negative (Negative); SPECIFIC GRAVITY 1.025 (1.001-1.030)
[2022-04-28 18:35] LABS: EPITHELIAL CELLS 0-2; RBC 0-2 rbc/hpf (0-2)
[2022-04-28 18:54] LABS: BASO % 0.3 % (0.0-1.0); EOS % 0.2 % (1.0-4.0); HEMATOCRIT 38.9 % (37.0-47.0); LYMPH % 29.7 % (27.0-41.0); MEAN CELL VOLUME 83.8 fl (81.0-99.0); MEAN CORPUSCULAR HGB 26.9 pg (27.0-31.0); MEAN CORPUSCULAR HGB CONC 32.1 g/dl (33.0-37.0); MEAN PLATELET VOLUME 10.2 fl (9.6-12.3); MONO # 0.6 10*3/uL (0.1-1.0); MONO % 5.5 % (3.0-9.0); NEUT # 6.4 10*3/uL (2.3-7.9); NEUT % 63.9 % (47.0-73.0); PLATELET COUNT AUTOMATED 239 10*3/uL (130-400); RED BLOOD COUNT 4.64 10*6/uL (4.10-5.10); RED CELL DISTRI WIDTH 14.6 % (0-14.5); WHITE BLOOD COUNT 10.1 10*3/uL (4.8-10.8)
[2022-04-28 19:15] LABS: ALKALINE PHOSPHATASE 70 U/L (45-117); BUN 11 mg/dl (7-24); CHLORIDE 106 mmol/L (98-107); CREATININE 0.69 mg/dL (0.55-1.02); LIPASE 155 U/L (73-393); POTASSIUM 3.7 mmol/L (3.5-5.1); SGPT/ALT 22 U/L (12-78); SODIUM 137 mmol/L (136-145); TOTAL PROTEIN 8.6 gm/dL (6.4-8.2)
[2022-04-28 20:01] VITALS: BP 156/72
== END 2022-04-28 21:26 | disposition home or self-care (01) ==
LOC: ED 15:48
PROVIDERS: Emergency Medicine; Physician Assistant
DX: R10.30 Lower abdominal pain, unspecified (principal); Z79.899 Other long term (current) drug therapy; Z98.51 Tubal ligation status; Z98.890 Other specified postprocedural states

== ENCOUNTER 2022-07-30 17:54 | Emergency (ER) | payer OTHER ==
[2022-07-30 18:01] VITALS: BP 153/90
== END 2022-07-30 19:11 | disposition home or self-care (01) ==
LOC: ED 17:54
DX: K08.89 Other specified disorders of teeth and supporting structures (principal); Z79.899 Other long term (current) drug therapy; Z98.51 Tubal ligation status; Z98.890 Other specified postprocedural states

== ENCOUNTER 2023-05-31 14:55 | Inpatient (IN) | payer OTHER ==
[~2023-05-31] VITALS: Ht 165.1 cm; Wt 94.5 kg
[2023-05-31] MEDS ORDERED: PROZAC20 MG PO (17:22)
[2023-05-31 17:23] VITALS: BP 168/82
[2023-05-31 18:11] LABS: BASO % 0.2 % (0.0-1.0); EOS % 0.2 % (1.0-4.0); LYMPH % 16.4 % (27.0-41.0); MEAN CELL VOLUME 80.4 fl (81.0-99.0); MEAN CORPUSCULAR HGB 24.6 pg (27.0-31.0); MEAN CORPUSCULAR HGB CONC 30.6 g/dl (33.0-37.0); MEAN PLATELET VOLUME 10.1 fl (9.6-12.3); MONO # 0.7 10*3/uL (0.1-1.0); MONO % 5.9 % (3.0-9.0); NEUT # 9.4 10*3/uL (2.3-7.9); NEUT % 76.8 % (47.0-73.0); PLATELET COUNT AUTOMATED 204 10*3/uL (130-400); RED BLOOD COUNT 4.23 10*6/uL (4.10-5.10); RED CELL DISTRI WIDTH 15.5 % (0-14.5); WHITE BLOOD COUNT 12.2 10*3/uL (4.8-10.8)
[2023-05-31 18:34] LABS: ALKALINE PHOSPHATASE 56 U/L (46-116); BUN 6 mg/dl (9-23); CHLORIDE 103 mmol/L (98-107); POTASSIUM 3.7 mmol/L (3.4-5.1); TOTAL PROTEIN 7.7 gm/dL (6.0-8.0)
[2023-05-31 18:52] LABS: SGPT/ALT < 7 U/L (5-49)
[2023-05-31 22:42] LABS: BILIRUBIN Negative (Negative); BLOOD Negative (Negative); CLARITY Clear (Clear); COLOR Yellow (Yellow); GLUCOSE Negative (Negative); KETONE Negative (Negative); LEUKO ESTERASE Negative (Negative); NITRITE Negative (Negative)
[2023-05-31 23:10] LABS: BACTERIA TRACE; EPITHELIAL CELLS 21-30
[2023-06-01 04:09] VITALS: BP 95/59
[2023-06-01 06:13] LABS: BASO % 0.1 % (0.0-1.0); EOS % 0.5 % (1.0-4.0); HEMATOCRIT 31.5 % (37.0-47.0); LYMPH # 1.8 10*3/uL (1.3-4.4); LYMPH % 23.6 % (27.0-41.0); MEAN CELL VOLUME 81.8 fl (81.0-99.0); MEAN CORPUSCULAR HGB 24.7 pg (27.0-31.0); MEAN CORPUSCULAR HGB CONC 30.2 g/dl (33.0-37.0); MEAN PLATELET VOLUME 10.3 fl (9.6-12.3); MONO # 0.6 10*3/uL (0.1-1.0); MONO % 7.4 % (3.0-9.0); NEUT # 5.2 10*3/uL (2.3-7.9); PLATELET COUNT AUTOMATED 172 10*3/uL (130-400); RED BLOOD COUNT 3.85 10*6/uL (4.10-5.10); RED CELL DISTRI WIDTH 15.6 % (0-14.5); WHITE BLOOD COUNT 7.7 10*3/uL (4.8-10.8)
[2023-06-01 06:14] LABS: ALKALINE PHOSPHATASE 48 U/L (46-116); BUN 5 mg/dl (9-23); CHLORIDE 110 mmol/L (98-107); CHOLESTEROL 146 mg/dL (<200); FREE T4 0.88 ng/dl (0.89-1.76); LDL CHOLESTEROL 82 mg/dL (9-159); POTASSIUM 3.6 mmol/L (3.4-5.1); TOTAL PROTEIN 6.6 gm/dL (6.0-8.0); TRIGLYCERIDES 68 mg/dl (<150)
[2023-06-01 06:24] LABS: SGPT/ALT < 7 U/L (5-49)
[2023-06-01 07:28] LABS: VITAMIN D, 25-HYDROXY 30.2 ng/mL (30-100)
[2023-06-01 08:00] VITALS: BP 109/72
[2023-06-01] MEDS ORDERED: VITAMIN D250 MC1 PO (09:51)
[2023-06-01 12:08] VITALS: BP 121/81
[2023-06-01 16:00] VITALS: BP 140/86
[2023-06-01 20:00] VITALS: BP 113/80; BP 143/74
[2023-06-02] VITALS: BP 119/74; BP 143/74
[2023-06-02 06:36] LABS: BASO % 0.4 % (0.0-1.0); EOS # 0.1 10*3/uL (0.0-0.4); EOS % 0.9 % (1.0-4.0); LYMPH # 1.8 10*3/uL (1.3-4.4); LYMPH % 33.1 % (27.0-41.0); MEAN CORPUSCULAR HGB 24.6 pg (27.0-31.0); MEAN PLATELET VOLUME 10.3 fl (9.6-12.3); MONO # 0.4 10*3/uL (0.1-1.0); NEUT # 3.2 10*3/uL (2.3-7.9); NEUT % 57.2 % (47.0-73.0); PLATELET COUNT AUTOMATED 183 10*3/uL (130-400); RED BLOOD COUNT 3.78 10*6/uL (4.10-5.10); RED CELL DISTRI WIDTH 15.3 % (0-14.5); WHITE BLOOD COUNT 5.5 10*3/uL (4.8-10.8)
[2023-06-02 06:51] LABS: ALKALINE PHOSPHATASE 46 U/L (46-116); CHLORIDE 108 mmol/L (98-107); POTASSIUM 3.8 mmol/L (3.4-5.1); TOTAL PROTEIN 6.6 gm/dL (6.0-8.0)
[2023-06-02 06:54] LABS: BUN < 5 mg/dl (9-23); SGPT/ALT < 7 U/L (5-49)
[2023-06-02 08:00] VITALS: BP 139/74
[2023-06-02 12:00] VITALS: BP 153/76
[2023-06-02] MEDS ORDERED: ONDANSETRON4 MG SL (14:00)
[2023-06-02] MEDS ORDERED: HYDROCODONE-AC1 EAC1 PO (14:00)
[2023-06-02] MEDS ORDERED: AMOX-CLAV 875-1 EACH PO (14:00)
== END 2023-06-02 15:23 | disposition home or self-care (01) | DRG 872 ==
LOC: ED 14:55 → EDHOLD 22:21 → 4E 22:21
PROVIDERS: Emergency Medicine; Internal Medicine; Student in an Organized Health Care Education/Training Program; ADMIT Internal Medicine; ATTEND Internal Medicine
DX: A41.9 Sepsis, unspecified organism (principal); E87.1 Hypo-osmolality and hyponatremia; K57.32 Diverticulitis of large intestine without perforation or abscess without bleeding; F41.9 Anxiety disorder, unspecified; I10 Essential (primary) hypertension; F43.21 Adjustment disorder with depressed mood; D50.9 Iron deficiency anemia, unspecified; R73.9 Hyperglycemia, unspecified; Z98.51 Tubal ligation status